=== PATIENT | female | born 1970 | race Asian ===

== ENCOUNTER 2024-10-22 12:12 | Emergency (ER) | payer BC, OTHER ==
[2024-10-22] MEDS ORDERED: Ketorolac Tromethamine 30 MG (1 mL) VIAL ONE (13:38)
== END 2024-10-22 13:42 | disposition home or self-care (01) ==
LOC: CSHERS 12:12
DX: R55 Syncope and collapse (principal); S09.90XA Unspecified injury of head, initial encounter; W19.XXXA Unspecified fall, initial encounter; W22.8XXA Striking against or struck by other objects, initial encounter
CPT/HCPCS: 70450; 93005; 96372; J1885